=== PATIENT | male | born 1990 | race Caucasian/White ===

== ENCOUNTER 2021-03-01 21:50 | Emergency (ER) | payer OTHER, SELFPAY ==
[2021-03-01 21:50] VITALS: BP 132/79; PULSE 110; RESP 16; TEMP 36.7; O2SAT 99; BMI 27.2
--- NOTE | 2021-03-01 22:25 | ED.VIS.DENTA ---
HPI History of Present Illness Chief Complaint: Dental Informant: patient Onset/Context/Timing Onset: Yesterday Context: Sudden Onset Timing: Continuous Current Severity: Mild Maximum Severity: Moderate Worsened by: Nothing Relieved by: - (Nothing) Associated Symptoms Assocated Symptom - Dental: Negative for fever, jaw swelling, face swelling, cold sensitivity or hot sensitivity Narrative Narrative: Patient is a 31-year-old male presents with dental pain that started yesterday. Pain is continuous. He denies any exacerbating, alleviating or precipitating factors. He denies fever, chills night sweats. Nausea traumatic fever, heart murmur, SBE, IV drug use or being immune suppressed. He denies jaw swelling. Denies difficulty opening or closing his mouth completely. He denies change in voice. No trouble swallowing. He denies any chest discomfort. Denies rash. Prior similar symptoms: Yes Recent Illness/Hospitalization: No PFSH PFSH no medical history Home Medications clindamycin HCl [Cleocin HCl] 300 mg PO Q6H #28 capsule 03/01/21 [Rx Last Taken Unknown] hydrocodone-acetaminophen 1 tab PO Q6H PRN PRN 3 Days #10 tablet 03/01/21 [Rx Last Taken Unknown] naproxen 500 mg PO BID #14 tab 03/01/21 [Rx Last Taken Unknown] Allergy/AdvReac Type Severity Reaction Status Date / Time No Known Allergies Allergy Verified 03/01/21 21:52 no surgical history Social History (Updated 03/01/21 @ 22:[address] Joseph Kramer MD) household members: significant other Smoking Status: Current every day smoker alcohol intake: current alcohol intake frequency: holidays/special occasions only substance use type: does not use ROS ROS ED Constitutional Constitutional ED: Denies chills, fever(s), subjective or sweats Eyes Eyes: Denies blurry vision or change in vision ENT ENT ED: Denies ear pain, rhinorrhea or sore throat Cardiovascular Cardiovascular: Denies chest pain, palpitations or racing heartbeat Respiratory/Chest Respiratory/Chest: Denies cough, dyspnea or dyspnea on exertion Gastrointestinal Gastrointestinal: Denies nausea or vomiting Musculoskeletal Musculoskeletal: Denies arthralgias, back pain, myalgias or neck pain Integumentary Denies Abrasions or rash Allergic/Immunologic Allergic/Immunologic ED: Denies mouth swelling, tongue swelling or urticaria EXAM Physical Exam Const Vital Signs: 03/01/21 21:50 Temperature 98.0 F Temperature Source Temporal Pulse Rate 110 H Respiratory Rate 16 Blood Pressure 132/79 H Blood Pressure Mean 96 Pulse Ox 99 Oxygen Delivery Method Room Air Positive well nourished and well developed General Appearance ED: well developed and NAD HEENT Reports TM's clear Tympanic Membrane ED: Yes TM's clear Mouth ED: Yes lips normal, Yes tongue normal, Yes salivary gland normal and No oral and palatal mucosa abnormal Mouth: lips normal, tongue normal, salivary gland normal and No oral and palatal mucosa abnormal Teeth and Gingiva: abnormal tooth and associated gingiva, caries and poor dentition Throat: posterior oropharynx normal Eyes PERRL and EOMs intact bilaterally Neck no lymphadenopathy, supple and no JVD Neck Narrative: Trachea is midline. There is no inspiratory or expiratory stridor. General: normal visual inspection; Negative for anterior neck swelling, tenderness or submandibular swelling Resp normal respiratory effort and clear to auscultation bilaterally Cardio regular rate, regular rhythm, S1 normal heart sound, S2 normal heart sound and no murmurs Neuro oriented x3 and moves all extremities Sensorium / Orientation: alert Motor Exam: strength 5/5 throughout Psych mental status grossly normal Skin no rashes or lesions noted MDM MDM MDM Narrative Medical decision making narrative: Patient has caries involving tooth #30, 31 and 32 as well as tooth #17 and 18. There is evidence of gingivitis. Dental disease. There is no submandibular lymphadenopathy. There is no trismus. Patient was treated with clindamycin, NSAID and opiate analgesia. He was instructed to follow-up with dentist. Discharge Plan Triage Chief Complaint: Dental ED Provider: Joseph Kramer Dx/Rx/DC Orders Clinical Impression: Dental caries extending into dentin, Dental caries extending into pulp, Apical abscess Prescriptions: New clindamycin HCl [Cleocin HCl] 300 MG capsule 300 mg PO Q6H Qty: 28 RF: 0 hydrocodone-acetaminophen [hydrocodone-acetaminophen] 1 TABLET tablet 1 tab PO Q6H PRN PRN (Reason: Pain) 3 Days Qty: 10 RF: 0 naproxen 500 MG tablet 500 mg PO BID Qty: 14 RF: 0 Referrals: Dentist,Your [STAFF PHYSICIAN] - 5-7 Days Disposition Disposition: Home, self care
[2021-03-01] MEDS: HYDROcodone Bitartrate/Apap 5/325 Tablet PO (22:33)
[2021-03-01] MEDS: Naproxen 250 MG Tablet 500 MG PO (22:33)
[2021-03-01] MEDS: Clindamycin HCl 150 MG Capsule 300 MG PO (22:34)
== END 2021-03-01 23:05 | disposition home or self-care (01) ==
LOC: ED 22:50
PROVIDERS: Emergency Provider Emergency Medicine
DX: K04.7 Periapical abscess without sinus (principal); K02.9 Dental caries, unspecified; F17.200 Nicotine dependence, unspecified, uncomplicated; Z79.1 Long term (current) use of non-steroidal anti-inflammatories (NSAID)
CPT/HCPCS: 99283